=== PATIENT | male | born 1990 | race Caucasian/White ===

== ENCOUNTER 2016-11-30 07:25 | Inpatient (IN) ==
[2016-11-30] MEDS ORDERED: NS 1,000 ML IV ONE (07:27)
[2016-11-30 07:39] LABS: BLOOD TYPE ARTERIAL; METHB 1.1 % (0.0-1.5); O2(CT) 21.5 mL/dL (15.0-23.0); PCO2(98.6) 43 mmHg (35-45); PO2(98.6) 151 mmHg (60-100); SAMPLE BLOOD; SAO2 99.8 % (95.0-100.0); pH(98.6) 7.38 (7.35-7.45)
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
[2016-11-30 07:47] LABS: MANUAL DIFF NEEDED? NO
--- NOTE | 2016-11-30 08:00 | EKG Report ---
Test Performed on : 11/30/2016 07:48:11 AM Test Reason : AMS Blood Pressure : / mmHG Vent. Rate : 075 BPM Atrial Rate : 075 BPM P-R Int : 124 ms QRS Dur : 086 ms QT Int : 408 ms P-R-T Axes : 057 073 062 degrees QTc Int : 455 ms Normal sinus rhythm. Acute pericarditis Abnormal ECG When compared with ECG of 30-DEC-2013 15:48, ST elevation now present in Inferior leads ST elevation has replaced ST depression in Anterior leads Unconfirmed Result
[2016-11-30 08:01] LABS: BASO% 0.6 % (0.0-0.8); EOS# 0.13 X1000 (0.0-0.7); HEMATOCRIT 43.2 % (42.0-52.0); HEMOGLOBIN 15.2 g/dL (14.0-18.0); IMM GRAN# 0.01 X1000 (0.0-0.04); IMM GRAN% 0.2 % (0.0-0.5); LYMPH# 1.97 X1000 (1.2-3.4); LYMPH% 30.4 % (20.5-51.1); MCHC 35.2 g/dL (33-37); MCV 93.7 FL (81-99); MONO# 0.61 X1000 (0.11-0.59); MONO% 9.4 % (1.7-9.3); MPV 9.5 FL (7.4-10.4); NEUT% 57.4 % (42.2-75.2); PLT 216 X1000 (130-400); RBC 4.61 XMIL (4.7-6.1)
--- NOTE | 2016-11-30 08:10 | Diag Imaging Result Doc PS360 ---
CT HEAD W/O CONTRAST - 11/30/2016 INDICATION: AMS TECHNIQUE: A CT dose reduction protocol was used. COMPARISON: 09/01/2016 FINDINGS: The ventricles and sulci are normal in size and contour. No intracranial mass or hemorrhage. The skull is intact. The sinuses mastoids and middle ears are clear. IMPRESSION: Negative exam. Electronically signed by Marcos Vivas 11/30/2016 8:08 AM
[2016-11-30 08:11] LABS: INR 0.91 (0.86-1.15)
[2016-11-30 08:12] LABS: PTT PL 27.7 Seconds (22.6-43.9)
[2016-11-30 08:13] LABS: AGAP 11; ALBUMIN 4.5 g/dL (3.5-5.0); ALKALINE PHOSPHATASE 88 U/L (32-122); BUN 15 mg/dL (8-22); CALCIUM 8.8 mg/dL (8.8-10.2); CHLORIDE 102 mmol/L (98-107); COSMO 275; GOT 22 U/L (10-34); GPT 34 U/L (10-44); POTASSIUM 3.5 mmol/L (3.5-5.1); SODIUM 137 mmol/L (136-145); TCO2 23 mmol/L (25-35)
--- NOTE | 2016-11-30 08:16 | Diag Imaging Result Doc PS360 ---
EXAM: CHEST-1 VIEW HISTORY: AMS TECHNIQUE: PA and Lateral chest x-ray COMPARISON: 11/16/2014 FINDINGS: The cardiomediastinal silhouette is within normal limits. The pulmonary vasculature is not congested. No infiltrate, effusion, or pneumothorax is appreciated. IMPRESSION: No acute cardiopulmonary abnormality is identified. Electronically signed by Lupe Garcia 11/30/2016 8:14 AM
[2016-11-30 08:17] LABS: ALLEN TEST YES; DRAW SITE R RADIAL; MODALITY CANNULA
[2016-11-30] MEDS ORDERED: NARCAN IV ONE (08:17)
[2016-11-30 08:19] LABS: URINE CULTURE PL NEEDED? NO
[2016-11-30 08:25] LABS: CK PROFILE 373 U/L (24-204)
[2016-11-30 08:26] LABS: BILIRUBIN URINE NEGATIVE (NEGATIVE); BLOOD URINE NEGATIVE (NEGATIVE); CLARITY CLEAR (CLEAR); COLOR YELLOW; GLUCOSE URINE NEGATIVE (NEGATIVE); LEUKOCYTES URINE TRACE (NEGATIVE); NITRITE URINE NEGATIVE (NEGATIVE); PROTEIN URINE TRACE mg/dL (NEGATIVE); UROBILINOGEN URINE NORMAL
[2016-11-30 08:31] LABS: UR AMPHETAMINES QUAL PRESUMPTIVE POSITIVE (NONE DETECT)
[2016-11-30 08:32] LABS: UR BARBITUATES QUAL NONE DETECTED (NONE DETECT); UR BENZODIAZEPIN QUAL PRESUMPTIVE POSITIVE (NONE DETECT); UR CANNABINOIDS QUAL NONE DETECTED (NONE DETECT); UR COCAINE QUAL NONE DETECTED (NONE DETECT); UR MDMA QUAL PRESUMPTIVE POSITIVE (NONE DETECT); UR METHADONE QUAL NONE DETECTED (NONE DETECT); UR METHAMPHETAMINE QUAL PRESUMPTIVE POSITIVE (NONE DETECT); UR OPIATES QUAL NONE DETECTED (NONE DETECT); UR OXYCODONE QUAL NONE DETECTED (NONE DETECT); UR PCP QUAL NONE DETECTED (NONE DETECT); UR TCA QUAL NONE DETECTED (NONE DETECT)
[2016-11-30 08:42] LABS: CK-MB 3.69 ng/mL (0.0-5.0)
[2016-11-30 09:17] LABS: URINE EPITHELIAL CELLS <10 /HPF (<10); URINE SOURCE CLEAN CATCH; URINE WBC <10 /HPF (<10)
--- NOTE | 2016-11-30 09:33 | ED EKG INTERP ---
This chart was entered by Deisy Figueroa Scribe, acting as scribe for Elen Caballero MD. EKG Interpretation - EKG Time of EKG reading by physician:: 07:48 EKG Read and Signed by:: Elen Caballero EKG Interpretation (*Must complete 3 of following elements*): Abnormal Rate: 75 Rhythm: normal sinus rhythm Comments: acute pericarditis Attestation - Physician/ RADHA Attestation Patient care was provided by Advanced Practice Provider:: No The physician spent face to face time with patient:: Yes Advanced Practice Provider documentation review:: Supervising physician onsite and consulted in the evaluation and care of this patient. The physician did have a face to face encounter with the patient. This chart was documented by the indicated scribe, (Deisy Figueroa Scribe) and accurately reflects the services I performed and decisions made by me, Elen Caballero MD, as attested by the provider's signature.
[2016-11-30 14:31] VITALS: BP 132/70
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
--- NOTE | 2016-12-30 03:36 | DISCHARGE SUMMARY ---
ADMISSION DATE: 11/30/2016 DISCHARGE DATE: 11/30/2016 ADMITTING DIAGNOSIS: Acute toxic metabolic encephalopathy. DISCHARGE DIAGNOSIS: Acute toxic metabolic encephalopathy. HISTORY: Briefly, a 26-year-old male with no medical problems, who came in unresponsive. He was found in the yard. Narcan was given. He still was somewhat confused so he came in for evaluation. He was seen in the ER, given IV fluids and Narcan again, and slowly began to wake up. He denied suicidality. It sounds like he had an acute drug intoxication perhaps illicit substances. His laboratory data was unremarkable. Urine drug screen was positive for amphetamines, methamphetamines, MDMA and benzodiazepines, which none of that I think was prescribed to him. Patient was felt clinically stable and discharged home. No current medications TIME SPENT: 32 minute discharge. DISPOSITION: Patient was seen and discharged from the ER. cc: Anival Andrew MD
== END 2016-11-30 14:35 | disposition home or self-care (01) ==
LOC: P.ED 07:25 → P.EDIPHOLD 11:54
PROVIDERS: ATTEND Internal Medicine